=== PATIENT | male | born 1980 | race Caucasian/White ===

== ENCOUNTER 2017-05-02 12:27 | Emergency (ER) | payer OTHER ==
[2017-05-02 12:34] VITALS: TEMP 36.8
[2017-05-02] MEDS ORDERED: ONDANSETRON INJ 2 MG/ML 2 ML VIAL IV STA (12:43)
[2017-05-02] MEDS ORDERED: SODIUM CHLORIDE 0.9% 1000ML 1,000 ML IV STA (12:43)
[2017-05-02] MEDS ORDERED: MoRPHine SULFATE 4 MG/ML 1 ML CARP\\VIAL IV PRN (12:45)
--- NOTE | 2017-05-02 12:54 | EMERGENCY ROOM VISIT NOTE ---
History Report prepared by Estrada: Lizabeth Pinto Under the Supervision of: Dr. Dada Bailon D.O. First contact with patient: 12:37 Chief Complaint: ABDOMINAL PAIN Stated Complaint: AB PAIN Nursing Triage Summary: Acute abdominal pain epigastric area and vomiting. Primary language Kinyarwanda. History of Present Illness The patient is a 37 year old male who presents to the Emergency Room with complaints of constant abdominal pain beginning last night. The patient states that he has been having abdominal pain similar to his pancreatitis that he had 3 years ago. He notes associated vomiting. He denies any diarrhea, chest pain, and fever. The patient states that he has a history of appendectomy but has not had a cholecystectomy. Source of History: patient Onset: last night Position: abdomen Timing: constant Associated Symptoms: + vomiting, No fevers, No chest pain, No diarrhea Review of Systems See HPI for pertinent positives & negatives. A total of 10 systems reviewed and were otherwise negative. Past Medical & Surgical Medical Problems: (1) No chronic problems (2) Pancreatitis Family History No pertinent family history stated. Social History Smoking Status: Unknown if Ever Smoked Housing Status: other (prisoner) Occupation Status: unemployed Current/Historical Medications Scheduled Pantoprazole (Protonix), 40 MG PO DAILY Allergies Coded Allergies: No Known Allergies (Unverified , 05/02/17) Physical Exam Vital Signs Date Time Temp Pulse Resp B/P (MAP) Pulse Ox O2 Delivery O2 Flow Rate FiO2 05/02/17 15:05 88 18 107/70 98 05/02/17 14:41 88 18 107/70 98 05/02/17 14:02 75 05/02/17 13:40 78 17 109/79 98 Room Air 05/02/17 12:34 36.8 97 18 118/78 96 Room Air Physical Exam GENERAL: Patient is awake, alert, and in no acute distress. Patient is resting comfortably and showing no signs of anxiety EYES: The conjunctivae are clear. The pupils are round and reactive. EARS, NOSE, MOUTH AND THROAT: The nose is without any evidence of any deformity. Mucous membranes are moist tongue is midline NECK: The neck is nontender and supple. RESPIRATORY: Normal respiratory effort is noted there is no evidence of wheezing rhonchi or rales CARDIOVASCULAR: Regular rate and rhythm noted there no murmurs rubs or gallops normal S1 normal S2 GASTROINTESTINAL: The abdomen is soft with significant epigastric and RUQ tenderness to palpation, guarding in epigastric region. Bowel sounds are present in all quadrants. PELVIS: The Pelvis is stable. No tenderness to palpation is noted. BACK: No midline tenderness or or step-off noted range of motion in flexion extension as well as rotation no signs of muscle spasm noted. Bilateral flank tenderness to percussion, ROM intact. MUSCULOSKELETAL/EXTREMITIES: There is no evidence of gross deformity full range of motion is noted in the hips and shoulders SKIN: There is no obvious evidence of any rash. There are no petechiae, pallor or cyanosis noted. NEUROLOGIC: Patient is awake alert and oriented x3 Medical Decision & Procedures ER Provider Diagnostic Interpretation: CT results as stated below per my review and radiologist interpretation. CT OF THE ABDOMEN AND PELVIS WITHOUT CONTRAST CLINICAL HISTORY: Abdominal and back pain. COMPARISON STUDY: No previous studies for comparison. TECHNIQUE: Axial images of the abdomen and pelvis were obtained without IV contrast. Images were reviewed in the axial, sagittal, and coronal planes. A dose lowering technique was utilized adhering to the principles of ALARA. FINDINGS: There are multiple gallstones within the gallbladder. The gallbladder is not distended there is no pericholecystic infiltration. No renal, ureteral or bladder calculi are present. There is no hydronephrosis or hydroureter. Evaluation of the remainder of the abdomen and pelvis is suboptimal on this unenhanced exam. The liver, spleen, adrenal glands and pancreas are normal. There is no peripancreatic infiltration. There is no biliary or pancreatic ductal dilatation. Caliber of small and large bowel are normal. Appendix is surgically absent. There is no free fluid. There is no lymphadenopathy or abscess. No suspicious osseous lesion is present. IMPRESSION: 1. Cholelithiasis. No evidence for acute cholecystitis. 2. No urinary calculi or hydronephrosis. 3. No acute process within the abdomen or pelvis on unenhanced exam. No bowel obstruction. Laboratory Results 05/02/17 12:45 Red Blood Count 5.40, Mean Corpuscular Volume 84.1, Mean Corpuscular Hemoglobin 29.1, Mean Corpuscular Hemoglobin Concent 34.6, Mean Platelet Volume 10.6, Neutrophils (%) (Auto) 55.2, Lymphocytes (%) (Auto) 29.4, Monocytes (%) (Auto) 9.5, Eosinophils (%) (Auto) 5.2, Basophils (%) (Auto) 0.5, Neutrophils # (Auto) 3.30, Lymphocytes # (Auto) 1.76, Monocytes # (Auto) 0.57, Eosinophils # (Auto) 0.31, Basophils # (Auto) 0.03 05/02/17 12:45 Test 05/02/17 12:45 05/02/17 12:50 White Blood Count 5.98 K/uL (4.8-10.8) Red Blood Count 5.40 M/uL (4.7-6.1) Hemoglobin 15.7 g/dL (14.0-18.0) Hematocrit 45.4 % (42-52) Mean Corpuscular Volume 84.1 fL (80-100) Mean Corpuscular Hemoglobin 29.1 pg (25-34) Mean Corpuscular Hemoglobin Concent 34.6 g/dl (32-36) Platelet Count 256 K/uL (130-400) Mean Platelet Volume 10.6 fL (7.4-10.4) Neutrophils (%) (Auto) 55.2 % Lymphocytes (%) (Auto) 29.4 % Monocytes (%) (Auto) 9.5 % Eosinophils (%) (Auto) 5.2 % Basophils (%) (Auto) 0.5 % Neutrophils # (Auto) 3.30 K/uL (1.4-6.5) Lymphocytes # (Auto) 1.76 K/uL (1.2-3.4) Monocytes # (Auto) 0.57 K/uL (0.11-0.59) Eosinophils # (Auto) 0.31 K/uL (0-0.5) Basophils # (Auto) 0.03 K/uL (0-0.2) RDW Standard Deviation 37.9 fL (36.4-46.3) RDW Coefficient of Variation 12.5 % (11.5-14.5) Immature Granulocyte % (Auto) 0.2 % Immature Granulocyte # (Auto) 0.01 K/uL (0.00-0.02) Anion Gap 8.0 mmol/L (3-11) Estimated GFR () 113.5 Estimated GFR (Non- 97.9 BUN/Creatinine Ratio 10.1 (10-20) Calcium Level 9.3 mg/dl (8.5-10.1) Total Bilirubin 0.6 mg/dl (0.2-1) Direct Bilirubin < 0.1 mg/dl (0-0.2) Aspartate Amino Transf (AST/SGOT) 20 U/L (15-37) Alanine Aminotransferase (ALT/SGPT) 32 U/L (12-78) Alkaline Phosphatase 78 U/L (45-117) Total Protein 8.1 gm/dl (6.4-8.2) Albumin 4.8 gm/dl (3.4-5.0) Lipase 129 U/L (73-393) Urine Color YELLOW Urine Appearance CLEAR (CLEAR) Urine pH 6.5 (4.5-7.5) Urine Specific [place] 1.006 (1.000-1.030) Urine Protein NEG (NEG) Urine Glucose (UA) NEG (NEG) Urine Ketones NEG (NEG) Urine Occult Blood NEG (NEG) Urine Nitrite NEG (NEG) Urine Bilirubin NEG (NEG) Urine Urobilinogen NEG (NEG) Urine Leukocyte Esterase NEG (NEG) Laboratory results per my review. Medications Administered Medications (Trade) Dose Ordered Sig/Mehdi Route Start Time Stop Time Status Last Admin Dose Admin Sodium Chloride 1,000 ml @ 999 mls/hr Q1H1M STAT IV 05/02/17 12:43 05/02/17 13:43 DC 05/02/17 12:57 999 MLS/HR Morphine Sulfate (MoRPHine SULFATE INJ) 4 mg Q15M PRN IV 05/02/17 12:45 05/02/17 15:56 DC 05/02/17 12:58 4 MG Ondansetron HCl (Zofran Inj) 4 mg NOW STAT IV 05/02/17 12:43 05/02/17 12:44 DC 05/02/17 12:57 4 MG Al Hydroxide/Mg Hydroxide (Maalox Susp) 30 ml NOW STAT PO 05/02/17 14:20 05/02/17 14:21 DC 05/02/17 14:39 30 ML Pantoprazole Sodium (Protonix Tab) 40 mg NOW STAT PO 05/02/17 14:20 05/02/17 14:21 DC 05/02/17 14:39 40 MG ED Course 1237: The patient was evaluated in room A12. A complete history and physical examination were performed. 1243: Zofran Inj 4mg IV, NSS 1,000 ml @ 999 mls/hr IV. 1245: Morphine Sulfate 4mg PRN IV pain. 1420: Protonix Tab 40 mg PO, Maalox Susp 30 ml PO. 1454: Upon reevaluation, the patient is doing well. I discussed the results and treatment plan with the patient. He verbalized agreement of the treatment plan. He was discharged home. Medical Decision Differential diagnosis: Etiologies such as appendicitis, diverticulitis, PUD, biliary pathology, UTI, pancreatitis, obstruction, mesenteric ischemia, aortic pathology, infections, inflammatory bowel disease, renal colic, as well as others were entertained. Nursing notes reviewed. The patient is a 37-year-old male who presented to the emergency apartment for abdominal pain which began a few days ago. The pain is mostly located in his epigastric region. The pain radiates to the patient's back. Initially I thought his condition could be consistent with a bladder pathology or possibly pancreatitis. The patient was treated with IV fluids IV pain medicine and IV antiemetics. He was also given Maalox and Protonix. I discussed the patient's laboratory and radiographic studies with him. I recommended that he start on a proton pump inhibitor. I also recommended a bland diet. I also recommended a follow-up in the [facility] for the next 24 hours for reevaluation and continue using Mylanta and Maalox as directed for symptomatically relief. Otherwise he was encouraged to return to the emergency department immediately if symptoms change worsen or the need arises. At this time I feels condition is likely consistent with gastritis. Medication Reconcilliation Current Medication List: was personally reviewed by me Blood Pressure Screening Patient's blood pressure: Normal blood pressure Blood pressure disposition: Did not require urgent referral Impression Primary Impression: Epigastric abdominal pain Additional Impression: Gastritis Scribe Attestation The scribe's documentation has been prepared under my direction and personally reviewed by me in its entirety. I confirm that the note above accurately reflects all work, treatment, procedures, and medical decision making performed by me. Departure Information Dispostion Home / Self-Care Prescriptions Pantoprazole (Protonix) 40 Mg Tab 40 MG PO DAILY, #30 TAB Prov: Dada Bailon, DO 05/02/17 Referrals Luis E ZACARIAS (PCP) Forms Call Back Authorization, HOME CARE DOCUMENTATION FORM, IMPORTANT VISIT INFORMATION Patient Instructions Abdominal Pain, Gastritis, My [facility] Additional Instructions Continue to use Maalox or Mylanta as directed for symptomatically relief. Continue all medications as prescribed. Follow-up with the [facility] through today. Return to the emergency department immediately if symptoms change worsen or the need arises. Problem Qualifiers Additional Impression: Gastritis Gastritis type: unspecified gastritis Chronicity: acute Gastritis bleeding : presence of bleeding unspecified Qualified Codes: K29.00 - Acute gastritis without bleeding
[2017-05-02 13:16] LABS: BASO % 0.5 %; BASO ABS # 0.03 K/uL (0-0.2); COMPLETE YES; EOS % 5.2 %; HEMATOCRIT 45.4 % (42-52); IG% 0.2 %; LYMPH % 29.4 %; LYMPH ABS # 1.76 K/uL (1.2-3.4); MEAN CELL VOLUME 84.1 fL (80-100); MEAN CORPUSCULAR HEMOGLOBIN 29.1 pg (25-34); MEAN CORPUSCULAR HGB CONC 34.6 g/dl (32-36); MEAN PLATELET VOLUME 10.6 fL (7.4-10.4); MONO % 9.5 %; NEUT % 55.2 %; PLATELET COUNT 256 K/uL (130-400); WHITE BLOOD COUNT 5.98 K/uL (4.8-10.8)
[2017-05-02 13:42] LABS: ALT/SGPT 32 U/L (12-78); BLOOD UREA NITROGEN 10 mg/dl (7-18); BUN/CREATININE RATIO 10.1 (10-20); CALCIUM 9.3 mg/dl (8.5-10.1); CARBON DIOXIDE 26 mmol/L (21-32); CHLORIDE 105 mmol/L (98-107); CREATININE 0.97 mg/dl (0.60-1.40); GLUCOSE 101 mg/dl (70-99); POTASSIUM 3.6 mmol/L (3.5-5.1); SODIUM 139 mmol/L (136-145)
[2017-05-02 13:45] LABS: ALKALINE PHOSPHATASE 78 U/L (45-117); AST/SGOT 20 U/L (15-37)
--- NOTE | 2017-05-02 13:52 | DIAGNOSTIC IMAGING REPORT ---
CT OF THE ABDOMEN AND PELVIS WITHOUT CONTRAST CLINICAL HISTORY: Abdominal and back pain. COMPARISON STUDY: No previous studies for comparison. TECHNIQUE: Axial images of the abdomen and pelvis were obtained without IV contrast. Images were reviewed in the axial, sagittal, and coronal planes. A dose lowering technique was utilized adhering to the principles of ALARA. FINDINGS: There are multiple gallstones within the gallbladder. The gallbladder is not distended there is no pericholecystic infiltration. No renal, ureteral or bladder calculi are present. There is no hydronephrosis or hydroureter. Evaluation of the remainder of the abdomen and pelvis is suboptimal on this unenhanced exam. The liver, spleen, adrenal glands and pancreas are normal. There is no peripancreatic infiltration. There is no biliary or pancreatic ductal dilatation. Caliber of small and large bowel are normal. Appendix is surgically absent. There is no free fluid. There is no lymphadenopathy or abscess. No suspicious osseous lesion is present. IMPRESSION: 1. Cholelithiasis. No evidence for acute cholecystitis. 2. No urinary calculi or hydronephrosis. 3. No acute process within the abdomen or pelvis on unenhanced exam. No bowel obstruction. Electronically signed by: Dwain Li M.D. 05/02/2017 1:51 PM Dictated Date/Time: 05/02/2017 1:43 PM
[2017-05-02 14:02] LABS: URINE APPEARANCE CLEAR (CLEAR); URINE BILIRUBIN NEG (NEG); URINE COLOR YELLOW; URINE NITRITE NEG (NEG); URINE PH 6.5 (4.5-7.5); URINE SPECIFIC GRAVITY 1.006 (1.000-1.030); UROBILINOGEN NEG (NEG)
[2017-05-02 14:05] LABS: MANUAL MICROSCOPIC REQUIRED? NO; REVIEW REQ? NO
[2017-05-02] MEDS ORDERED: ALUMINUM/MAGNESIUM SUSP 30 ML UDC PO STA (14:20)
[2017-05-02] MEDS ORDERED: PANTOprazole SOD 40 MG TAB PO STA (14:20)
[2017-05-02] MEDS ORDERED: PANT40TA PO (14:51)
[2017-05-02 15:05] VITALS: BP 107/70; PULSE 88; O2SAT 98
== END 2017-05-02 15:07 | disposition home or self-care (01) ==
LOC: C.EDB 12:29 → C.EDA 15:07
DX: R10.13 Epigastric pain (principal); K29.00 Acute gastritis without bleeding; K85.90 Acute pancreatitis without necrosis or infection, unspecified